=== PATIENT | female | born 2000 | race Caucasian/White ===

== ENCOUNTER 2020-10-14 02:47 | Emergency (ER) | payer BC ==
[~2020-10-14] VITALS: Ht 170.2 cm; Wt 65.1 kg
[2020-10-14] MEDS ORDERED: famotidine 20mg tablet PO ONE ×2 (03:25→04:05)
[2020-10-14] MEDS ORDERED: LIDOcaine Viscous 15ml cup MM ONE (03:25)
[2020-10-14] MEDS ORDERED: mag hydrox/Alum hydrox/simeth 30ml oral suspension PO ONE (03:25)
[2020-10-14] MEDS ORDERED: FAMO-128 PO (04:13)
== END 2020-10-14 04:46 | disposition home or self-care (01) ==
LOC: ER 02:48
DX: R10.9 Unspecified abdominal pain (principal); R07.9 Chest pain, unspecified; R12 Heartburn
CPT/HCPCS: 99283